=== PATIENT | female | born 1995 | race Caucasian/White ===

== ENCOUNTER → 2019-04-22 | Outpatient (CLI) | payer OTHER ==
[~2019-04-22] MED LIST: OXYACE5T PO; RXOXYACE PO; SULTRIDS PO; TYLENOL PRN
== END ==
LOC: LAB SHORT 16:00 → LAB 16:00
PROVIDERS: Registered Nurse Community Health
DX: Z12.4 Encounter for screening for malignant neoplasm of cervix (principal)
CPT/HCPCS: G0123